=== PATIENT | female | born 1975 | race Caucasian/White ===

== ENCOUNTER 2021-07-12 14:31 | Emergency (ER) | payer BC ==
[~2021-07-12 14:31] MED LIST: ANAS1 PO; Allegra-D 24 H1 EACH PO; Alprazolam0.5 MG PO; BUPROPION XL150 M1 PO; GABA300 PO; IBUP800 PO; K-Dur20 MEQ PO; LINZESS72 MCG; MELA3 PO; PROZAC PO; Percocet 5-3251 EACH PO; TAMO10 PO; TRAM50 PO; Tamiflu75 MG PO; Ultram50 MG PO; VENL150ER PO; VENLAFAXINE HC150 MG PO
== END 2021-07-12 14:50 | disposition left against medical advice (07) ==
LOC: ER 14:31
DX: Z53.21 Procedure and treatment not carried out due to patient leaving prior to being seen by health care provider (principal)

== ENCOUNTER 2024-12-12 09:57 | Emergency (ER) | payer OTHER ==
[~2024-12-12] VITALS: Ht 167.6 cm; Wt 72.6 kg
[2024-12-12] MEDS ORDERED: Methocarbamol 500 MG Tab PO ONE ×2 (10:30→13:35)
[2024-12-12] MEDS ORDERED: Cyclobenzaprine HCl 10 MG Tab PO ONE (10:30)
[2024-12-12] MEDS ORDERED: Ketorolac Tromethamine 15mg Vial IM ONE (10:30)
[2024-12-12 13:50] LABS: Source, Urine Clean Catch
[2024-12-12 13:56] LABS: Appearance, Urine Clear (Clear); Bilirubin, Urine Neg (Neg); Blood, Urine Neg (Neg); Color, Urine Yellow (P-Yellow); Glucose Qualitative, Urine Neg (Neg); Ketones, Urine Neg (Neg); Leukocyte Esterase, Urine 3+ (Neg); Nitrite, Urine Neg (Neg); Protein, Urine Neg (Neg); Urobilinogen, Urine NORM (Normal); pH, Urine 6.5 (5.0-8.0)
[2024-12-12 14:12] LABS: Bacteria Few /hpf; Red Blood Cells, Urine 0-2 /hpf (0-2); Squamous Epithelial Cells Few /hpf (Few); Transitional Epithelial Cells Rare /hpf (0-Rare)
[2024-12-12] MEDS ORDERED: Methyl Salicylate/Menth/Camph 57 GM TUBE TOP ONE (15:00)
[2024-12-12] MEDS ORDERED: Acetaminophen 500 MG Tab PO ONE (15:00)
[2024-12-12 15:56] LABS: BASOPHILS ABSOLUTE AUTO 0.05 K/mm3 (0.00-0.23); BASOPHILS PERCENT AUTO 1 % (0-2); EOSINOPHILS ABSOLUTE AUTO 0.29 K/mm3 (0.00-0.68); EOSINOPHILS PERCENT AUTO 4 % (0-6); Hematocrit 42.5 % (33.0-51.0); Hemoglobin 14.3 g/dL (11.5-16.0); IMMATURE GRAN ABSOLUTE AUTO 0.02 K/mm3 (0.00-0.10); IMMATURE GRAN PERCENT AUTO 0 % (0-1); LYMPHOCYTES ABSOLUTE AUTO 2.68 K/mm3 (0.84-5.20); LYMPHOCYTES PERCENT AUTO 39 % (21-46); MONOCYTES ABSOLUTE AUTO 0.45 K/mm3 (0.16-1.47); MONOCYTES PERCENT AUTO 7 % (4-13); Mean Corpuscular HGB 29.6 pg (26.0-34.0); Mean Corpuscular HGB Conc 33.6 g/dL (31.5-36.5); Mean Corpuscular Volume 88 fL (80-100); NEUTROPHILS ABSOLUTE AUTO 3.37 K/mm3 (1.96-9.15); NEUTROPHILS PERCENT AUTO 49 % (41-73); Platelet Count 230 K/mm3 (150-400); RDW Coefficient Variation 12.5 % (11.7-14.2); RDW Standard Deviation 40.4 fL (35.1-46.3); Red Blood Cell Count 4.83 M/mm3 (3.80-5.20); White Blood Cell Count 6.86 K/mm3 (4.00-11.30)
[2024-12-12 16:22] VITALS: BP 112/77
[2024-12-12] MEDS ORDERED: Cephalexin Monohydrate 500 MG Cap PO ONE (16:30)
[2024-12-12 17:11] LABS: Albumin, Blood 3.4 g/dL (3.4-5.0); Albumin/Globulin Ratio 0.9 (0.8-1.8); Bilirubin, Total 0.6 mg/dL (0.1-1.0); Bun/Creatinine Ratio 14.6 (12.0-20.0); Calcium, Blood 9.4 mg/dL (8.5-10.1); Creatinine, Blood 1.03 mg/dL (0.40-1.00); Globulin, Blood 3.9 g/dL (2.2-4.0); Total Protein, Blood 7.3 g/dL (6.4-8.2)
[2024-12-12] MEDS ORDERED: CEPH500 PO (17:16)
[2024-12-12] MEDS ORDERED: Methocarbamol500 MG PO (17:16)
[2024-12-12] MEDS ORDERED: IBUP600 PO (17:16)
== END 2024-12-12 17:24 | disposition home or self-care (01) ==
LOC: ER 09:57
PROVIDERS: Emergency Medicine
DX: S39.012A Strain of muscle, fascia and tendon of lower back, initial encounter (principal); M62.830 Muscle spasm of back; N39.0 Urinary tract infection, site not specified; Z85.3 Personal history of malignant neoplasm of breast; Z87.891 Personal history of nicotine dependence; Z88.5 Allergy status to narcotic agent; Z91.041 Radiographic dye allergy status; Z79.899 Other long term (current) drug therapy; X50.0XXA Overexertion from strenuous movement or load, initial encounter
CPT/HCPCS: 51798; 72100; 74176; 80053; 81001; 85025; 87086; 99284-25; A9270

== ENCOUNTER 2025-05-17 07:55 | Emergency (ER) | payer OTHER ==
[~2025-05-17] VITALS: Ht 167.6 cm; Wt 56.7 kg
[~2025-05-17 07:55] MED LIST changes: +CEPH500 PO; +IBUP600 PO; +Methocarbamol500 MG PO
[2025-05-17 07:59] VITALS: BP 104/72
[2025-05-17] MEDS ORDERED: CYCL10 PO (10:45)
== END 2025-05-17 10:50 | disposition home or self-care (01) ==
LOC: ER 07:55
DX: S16.1XXA Strain of muscle, fascia and tendon at neck level, initial encounter (principal); F17.200 Nicotine dependence, unspecified, uncomplicated; V49.9XXA Car occupant (driver) (passenger) injured in unspecified traffic accident, initial encounter
CPT/HCPCS: 71046; 99283-25